=== PATIENT | male | born 1960 | race Caucasian/White ===

== ENCOUNTER → 2016-12-21 | Outpatient (CLI) | payer OTHER ==
[~2016-12-21] MED LIST: ASPIRIN LO-DOSE81 MG PO; LASIX40 MG PO; LEVOTHROID (S112 MCG PO; LIPITOR20 MG PO; LOPRESSOR50 MG PO; NITROSTAT0.4 MG SL; NORVASC5 MG PO; TOPROL XL25 MG PO; TRICOR145 MG PO
--- NOTE | ~2016-12-21 | ESTC ---
Cardiac Perfusion Imaging Demographics Patient Name DONNIE PORRAS I Gender Male Patient Number [id number] Race Visit Number [id number] Ethnicity Corporate ID Room Number 1 Accession Number [id number] Height 72 inches Date of 1960 Weight 206 pounds Interpreting Jay Herrmann Date of study 12/21/2016 Physician Supervising /LINH Herrmann NM Technologist Luis Evans MD Ordering Physician Jay Herrmann Stress Yg AQUINO overhead door technician Chaz Stress ECG Reading Jay Herrmann Nurse Rocco Lima Physician The procedure was explained in detail to the patient. Risks, complications and alternative treatments were reviewed. Written consent was obtained. Medications Reviewed with Patient prior to Procedure. Procedure Procedure Type: Nuclear Stress Test:Exercise, Cardiolite Stress Test Procedure Start time: 12/21/2016 00:00 Indications: Aortic Insufficiency. Risk Factors The patient risk factors include:Current/Recent(w/in 1 year) tobacco use and prior valve surgery/procedure . Conclusions Summary Perfusion Images: The overall quality of the study is good. Left ventricular cavity is noted to be enlarged on the stress and on the rest images. There is no evidence of abnormal lung activity. The right ventricle is not visualized an cannot be assessed. Impression ECG portion of the exercise stress test is clinically positive for ischemia by diagnostic criteria. Myocardial perfusion imaging is severely abnormal. The images reveal a partially reversible defect in the basal to mid inferior wall consistent with ischemia in the territory of the right coronary artery . Overall left ventricular systolic function was abnormal. Calculated LVEF is 37%. LV cavity is dilated. TID ratio is 1.22. This is a high risk stress test. Stress Protocols Resting ECG NSR, ST depressions in 2,3, avF, V4-6. Resting HR:63 bpm Resting BP:118/67 mmHg Pre-stress physical exam: reg rhythm, clear lungs Stress Protocol:Exercise Predicted HR: 164 bpm ECG Findings [address] depression in leads 2,3,aVF, V3-6 with peak exercise. Arrhythmias No rhythm abnormality. Symptoms Shortness of breath. Complications Procedure complication: None. Stress Interpretation The electrocardiographic portion of the exercise stress test was positive for ischemia. Blood pressure response was normal, heart rate response was normal for exertion. The Esquivel Treadmill Score was -8. Given early ST depressions and marked ST depressions in multiple leads this is high risk stress test. Imaging Results Summed scores - Summed stress score: 5 - Summed rest score: 5 - Summed difference score: 0 Stress ejection Ejection fraction:37 % EDV :203 ml ESV :128 ml Stroke volume :75 ml LV mass :193 gr Imaging Protocols Rest Stress Isotope:Tc99m Sestamibi IV Isotope: Tc99m Sestamibi IV Isotope dose:14.4 mCi Isotope dose:42.8 mCi Date:12/21/2016 07:53 Date:12/21/2016 09:51 Technique: SPECT Technique: Gated Supine SPECT Supine Scan Time:45-60 minutes post Scan Time:15-30 minutes post injection injection Medical History Admission Data Admission date: 12/21/2016 Admission Time: 06:58 Hospital Status: Outpatient. Signatures dtt: LEONIDES LUO dtd: 12/21/16 0000 Physician Self Edit
== END | disposition disaster alternative care site (69) ==
LOC: GRAD 06:58
DX: I35.1 Nonrheumatic aortic (valve) insufficiency (principal); I99.8 Other disorder of circulatory system; I51.89 Other ill-defined heart diseases; R06.09 Other forms of dyspnea; Z72.0 Tobacco use; Z98.890 Other specified postprocedural states
CPT/HCPCS: A9500

== ENCOUNTER 2017-04-21 15:15 | Inpatient (IN) | payer OTHER ==
[~2017-04-21] VITALS: Ht 182.9 cm; Wt 94.8 kg
--- NOTE | ~2017-04-21 | CATH ---
Cardiac Diagnostic + PCI Report Demographics Patient Name DONNIE PORRAS I Gender Male Date of 1960 Age 57 year(s) Patient Number [id number] Date of Study 04/23/2017 Visit Number [id number] Room Number G6[address] [place] [id number] Ht 182.88 cm Wt 94.8 kg Referring Yobani Whitman Primary Physician Physician Per[facility] Secondary Physician Physician Alize AQUINO Diagnostic [facility] Assisting Physician Physician Alize AQUINO Interventional [facility] Physician Tower Erector Physician Alize AQUINO Findings and Conclusions Diagnostic Findings and Conclusion 1) One vessel obstructive CAD, mid LAD 60-70%, Diag prox 80% tubular lesion 2) Moderate lesions in distal RCA and mid Cx Diagnostic Recommendations iFR of LAD, Cx and RCA (prior to SAVR for severe sx with NYHA 4, CHF exacerbation with volume overload) to determine need for revascularization. Interventional Findings and Conclusion iFR of mid LAD was 0.81, this lesion is physiologically significant and will benefit from revascularization The iFR of Cx and RCA lesions are not physiologically significant. iFR Cx was 1 iFR RCA was 1 Interventional Recommendations -SAVR and BYNUM to LAD/Diag -D/W [facility] CT surgery team, who will call patient to schedule. Patient will be discharged later today. Hydration and followup creatinine. Patient has been instructed to not lift anything more than 5 pounds for 1 week. Aggressive risk factor management. Aggressive medical therapy for coronary artery disease. Procedure Description The patient was brought to the diagnostic cardiac catheterization-EP laboratory in the fasting, non-sedated state. Informed consent was obtained in the written and verbal form after the risks and benefits were explained. The patient had no further questions and agreed to proceed. The planned puncture-incision site(s) were shaved and prepped with ChloraPrep and draped in the usual sterile manner. Conscious sedation, supplemental oxygen, and pain control medications were delivered by a registered nurse under physician guidance. Surface ECG rhythm, blood pressure measurement, and pulse oximetry were monitored throughout the procedure. Arterial access. The access site was infiltrated with lidocaine. The vessel was entered with the Seldinger technique. A sheath was advanced into the vessel and used for catheter placement. Selective left coronary angiography. A catheter was advanced into the left coronary vessel ostium under Fluoroscopic guidance. Contrast was injected by hand. Images were obtained in multiple projections. Selective right coronary angiography. A catheter was advanced into the right coronary vessel ostium under fluoroscopic guidance. Contrast was injected by hand. Images were obtained in multiple projections. iFR measurement was performed. The vessels was entered with a guiding catheter. The iFR wire was normalized and then advanced across the lesiona. Measurements were taken. Arterial artery hemostasis was achieved. The patient was transferred to a regular nursing floor via cart accompanied by a nurse. The patient left the laboratory in stable condition. Diagnostic Cath Status: Urgent Interventional Cath Status: Urgent Procedure Procedure Type Diagnostic procedure:Angiography:, Coronary Angios PCI procedure:Additional Imaging:, FFR/iFR:, Initial Vessel, Add'l Vessel Indications: CHF, Angina and CAD. The procedure was explained in detail to the patient. Risks, complications and alternative treatments were reviewed. Written consent was obtained. Medications Reviewed with Patient prior to Procedure. Angiographic Findings Dominance: Right Cardiac Arteries and Lesion Findings LMCA: Abnormal. Lesion on LMCA: Distal subsection.20% stenosis . LAD: Abnormal.The 1st Diag appears abnormal. Lesion on Mid LAD: 60% stenosis . Devices used - Verrata Pressure Wire. Number of passes: 1. Lesion on 1st Diag: Proximal subsection.80% stenosis . LCx: Abnormal.The 1st ob Kavitha appears normal. Lesion on Mid CX: 40% stenosis . Devices used - Verrata Pressure Wire. Number of passes: 1. RCA: Abnormal.The R PDA appears abnormal. The R PL appears normal. Lesion on Dist RCA: 50% stenosis . Devices used - Verrata Pressure Wire. Number of passes: 1. Lesion on Prox RCA: 20% stenosis . Lesion on R PDA: Ostial.80% stenosis . Comments:focal Coronary Tree Procedure Data Procedure Date Date: 04/23/2017Start: 08:10 AMEnd: 08:46 AM Entry Locations - Retrograde Percutaneous access was performed through the Right Radial artery (Primary location). A 6 Fr sheath was inserted. Hemostasis was successfully obtained using an R band. Closure Comments: que placement. 15 ml air in band. Procedure Medications Order and Administration + + + + + !Time !Medication !Dosage !Route ! + + + + + !04/23/2017 08:06 AM !Versed !2 mg !I.V. ! + + + + + !04/23/2017 08:06 AM !Fentanyl !50 mcg !I.V. ! + + + + + !04/23/2017 08:12 AM !Radial Verapamil !2.5 mg !I.A. ! + + + + + !04/23/2017 08:14 AM !Oxygen !2 l/min !NC ! + + + + + !04/23/2017 08:17 AM !Heparin (ACC_3) !5000 units !I.V. bolus ! + + + + + !04/23/2017 08:18 AM !Heparin (ACC_3) !2000 units !I.V. bolus ! + + + + + !04/23/2017 08:23 AM !Oxygen !4 l/min !NC ! + + + + + !04/23/2017 08:40 AM !Oxygen ! !NC ! + + + + + Devices Used - A5 Fr. BS JR 4 Diag. Catheterwas used for:Right coronary angiography. - A6 Fr. EBU 3.5 Guide Catheterwas used for:Left coronary angiography. - A6 Fr. JR4 Guide Catheterwas used for:Fractional Flow [place] measurments. - A5 Fr. BS JL 3.5 Diag. Catheterwas used for:Was not used. Contrast Material - Isovue 62954 ml Fluoroscopy Time: Diagnostic: 7:06 minutes. Total: 7:06 minutes. Fluoroscopy Dose: Diagnostic: 813 mGy. Total: 813 mGy. Estimated Blood Loss: 10 ml. Medical History Performed Procedures and Imaging Results - No ACC stress or imaging studies were performed. Allergies - No known allergies. Risk Factors The patient risk factors include:hypertension, family history of premature CAD, last creatinine: 1.2 mg/dl, creatinine clearance: 91.07 ml/min, prior valve surgery/procedure, dyslipidemia, former tobacco use and prior heart failure . Admission Data Admission Date: 04/21/2017 Admission Time: 04:19 PM Admit Source: Other Insurance Payors: [employer] health insurance. Admission Medications + +------+------+---------+---------+ + + !Medication !Dosage!Times !Last !Last !Administered !Comments ! ! ! !Per !Delivery !Delivery ! ! ! ! ! !Day !Date !Time ! ! ! + +------+------+---------+---------+ + + !Aspirin (any) ! ! ! ! !Yes ! ! + +------+------+---------+---------+ + + !Statin (any) ! ! ! ! !Yes ! ! + +------+------+---------+---------+ + + !Beta Reanna ! ! ! ! !Yes ! ! !(any) ! ! ! ! ! ! ! + +------+------+---------+---------+ + + !Low Molecular ! ! ! ! !Yes ! ! !Weight Heparin! ! ! ! ! ! ! !(any) ! ! ! ! ! ! ! + +------+------+---------+---------+ + + Clinical Evaluation Leading to Procedure - The patient's CAD presentation was assessed as: Unstable angina. - The patient's anginal syndrome during the past two weeks was assessed as: Class III according to the [place] Cardiovascular Society Classification System (CCS). Anti-anginal medications were prescribed during the past two weeks. The medication is: Beta Blockers. - The patient has been in a state of heart failure within the past two weeks. - The patient's heart failure status was assessed as NYHA Class IV, with CHF symptoms of KIM. Hemodynamics Condition: Rest O2 Consumption: Estimated: 262.50Heart Rate: 78 bpm Pressures (mmHg) +-----+ + !Site !Pressure ! +-----+ + !AO !93/56 (74) ! +-----+ + !AO !100/56 (77) ! +-----+ + Shunts Oxygen Values O2 Capacity 220.32 O2 Consumption 262.5 Discharge Data Discharge Date: 04/23/2017 Hospital Status: Inpatient Signatures dtt: ALIZE LUO dtd: 04/23/17 0810 Physician Self Edit
--- NOTE | ~2017-04-21 | DS ---
PATIENT'S NAME: CHIQUITA FIELDS I [facility] AGE: 57 Y [address] ROOM: G6321 [place], [place] [address] LOCATION: GPCU ADMIT DATE: 04/21/2017 Discharge Summary DISCHARGE DATE: 04/23/2017 FAMILY PHYSICIAN: Felix Hilton DO ATTENDING PHYSICIAN: Dom Solis FINAL DIAGNOSES: 1. Severe asymptomatic bioprosthetic aortic stenosis with decompensated congestive heart failure, [place] Heart Association class IV. 2. Unstable angina with significant left anterior descending lesion. PROCEDURES: He had a left heart cath by Dr. Grossman on April 23. REASON FOR CONSULTATION: Please see the history and physical dictated by Dr. Solis. In short, the patient had been having increasing symptoms of shortness of breath consistent with congestive heart failure and angina. The patient was admitted for heart catheterization and treatment of CHF prior to possible surgical intervention. LABORATORY DATA: At discharge, sodium 138, potassium 3.9, chloride 104, CO2 26, BUN 23, and creatinine 1.2. White blood cell count at discharge 8.3, hemoglobin 16.2, hematocrit 46.9, and platelet count 145. Pro-BNP on admission was 6678. Cholesterol 107, triglycerides 171, HDL 32, and LDL 41. HOSPITAL COURSE: The patient was admitted with a diagnosis of decompensated congestive heart failure. He was placed on telemetry. He was given IV Lasix and Dr. Grossman did help coordinate care. The plan was for the patient to undergo a cardiac catheterization on the . It was felt that he did have significant congestive heart failure. It was known from studies in the clinic that he was having leakage from his bioprosthetic aortic valve. He did respond very nicely to the Lasix with significant diuresis. It was felt that he was stable to proceed with a heart catheterization on the . Please see Dr. Grossman's full dictation for details of the heart catheterization. The patient was found to have a significant LAD lesion. Dr. Grossman did contact the [facility]. The patient will require redo aortic valve replacement and will have to have a bypass of the LAD and diagonal. The patient was made aware of this, he was monitored appropriately after the procedure, and felt to be stable for discharge. DISCHARGE INSTRUCTIONS: His discharge instructions are postroutine heart catheterization going through the wrist. Followup in [facility] in [place] with Dr. Grossman in 1 month. He will be contacted by the [facility] regarding surgery timing. DISCHARGE MEDICATIONS: PATIENT'S NAME: CHIQUITA FIELDS I [facility] AGE: 57 Y [address] ROOM: G6321 [place], [place] [address] [facility] ADMIT DATE: 04/21/2017 Discharge Summary DISCHARGE DATE: 04/23/2017 FAMILY PHYSICIAN: Felix Hilton DO ATTENDING PHYSICIAN: Dom Solis 1. Aspirin 81 mg daily. 2. Lipitor 20 mg daily. 3. Lasix 40 mg daily. 4. Synthroid 112 mcg daily. 5. Toprol-XL 25 mg daily. 6. Nitroglycerin 0.4 mg sublingual p.r.n. chest pain. The patient did voice understanding of the instructions. JOEL MEJIA MD LAW/modl /[id number] CC: MD Felix Begum DO d: t: 04/26/17 1446, DISCHARGE SUMMARY
--- NOTE | ~2017-04-21 | CON ---
PATIENT'S NAME: REN FIELDS I [facility] AGE: 57 Y [address] ROOM: G6321 [place], [place] [address] LOCATION: GPCU ADMIT DATE: 04/21/2017 Consultation DISCHARGE DATE: FAMILY PHYSICIAN: PHYSICIAN, NO ATTENDING PHYSICIAN: ISIAH SUMMERS DATE OF CONSULTATION: 04/21/2017 REFERRING PHYSICIAN: LEONIDES LUO MD PRIMARY CARE DOCTOR: Felix Hilton D.O. REASON FOR CONSULTATION: CHF. CHIEF COMPLAINT: Shortness of breath and chest heaviness. HISTORY OF PRESENT ILLNESS: Ren is a very pleasant 57-year-old male who has history of bioprosthetic Medtronic aortic valve replacement that was done in 2006, it is a #29. He also had ascending aortic root replacement with #32 Vascutek Dacron graft and reimplantation of his coronary arteries at the same time. Over the years, his bioprosthetic aortic valve gradients have been increasing and his last echocardiogram showed a gradient of 40.3 mmHg, mean gradient across the bioprosthetic aortic valve also with 2 jets of paravalvular leak. The leaflets were severely calcific with restricted mobility. He did have a stress test with reversible defect in the mid anterior wall. He underwent heart cath and he had about 40% to 50% lesion in the mid LAD as well as the diagonal side branch had about 50% to 60% stenosis as well, mild nonobstructive disease in the circumflex and the RCA. At that time, we did consult CT Surgery. He saw Dr. Ledesma at [facility] and basically he reviewed the CARLOS as well as the cardiac cath angiograms and the decision was to proceed with redo surgical AVR. Given his young age as well as low STS risk, he was deemed not an ideal candidate for TAVR. The patient wanted to postpone the surgery because he was doing quite well and did not have significant symptoms except for dyspnea on exertion that has been chronic, so he did try to postpone the surgery to early next year since he did have some activities and weddings in the family to attend prior to that. The patient did see his primary care physician in [place] for complains of shortness of breath, dyspnea on exertion, as well as chest heaviness with exertion for the past 3 days. He was not able to lay down and sleep and had a gargling sensation in his throat and difficulty breathing as well as wheezing PATIENT'S NAME: REN FIELDS I [facility] AGE: 57 Y [address] ROOM: G6[address] [place], [place] [address] LOCATION: GPCU ADMIT DATE: 04/21/2017 Consultation DISCHARGE DATE: FAMILY PHYSICIAN: PHYSICIAN, NO ATTENDING PHYSICIAN: ISIAH SUMMERS when he was laying down. He also reports worsening dyspnea on exertion for the past 3 days. He does not have any symptoms at rest and when he sits up on his recliner, he does not have any shortness of breath. During interview, the patient does not have any chest pain. He is doing very well. He is not on oxygen and his saturations are greater than 90%. In the local hospital in [place], he did get blood work where his D-dimer was elevated and he underwent a CT scan of his chest that showed bilateral pleural effusions with cardiac enlargement and diffuse interstitial prominence suspicious for interstitial edema suggestive of congestive heart failure. There was no evidence of PE. His labs were obtained and his renal function is stable and his GFR is greater than 60. His D-dimer was elevated at 1161, for which he underwent a CT scan. His proBNP was also elevated at 4952. On EKG, he did have some new ST depressions in leads V5 and V6 compared to his prior EKG. HOME MEDICATIONS: 1. Lipitor 20. 2. Toprol-XL 25 daily. 3. Aspirin 81 daily. ALLERGIES: NO KNOWN DRUG ALLERGIES. PHYSICAL EXAMINATION: VITAL SIGNS: Height is 6 feet, blood pressure 140/70, pulse is 70, and O2 saturations 96% on room air. SKIN: Warm and dry. EYES: Sclerae white. No xanthelasmas. ENT: Mucous membranes are moist. No JVD or carotid bruits. HEAD: Atraumatic and normocephalic. CHEST: Decreased breath sounds in both lung bases. Lungs are otherwise clear anteriorly. ABDOMEN: Soft. Bowel sounds positive. EXTREMITIES: No significant lower extremity edema. PSYCH: Alert and oriented. Mood normal. NEURO: Grossly intact. MUSCULOSKELETAL: Good range of motion. Gait normal. HEART: S1 and S2. Regular rate and rhythm. 3/6 systolic murmur best heard in the right second intercostal space. LABORATORY DATA: CBC: WBC 8.9, H and H 15.9 and 45.9, and platelets are 145. D-dimer is 1161. ProBNP is 4952. His GFR is greater than 60. His electrolytes are normal. DIAGNOSTIC STUDIES: PATIENT'S NAME: REN FIELDS I [facility] AGE: 57 Y [address] ROOM: [place] [address] LOCATION: GPCU ADMIT DATE: 04/21/2017 Consultation DISCHARGE DATE: FAMILY PHYSICIAN: PHYSICIAN, NO ATTENDING PHYSICIAN: ISIAH SUMMERS CT negative for PE, cardiac enlargement with moderately large bilateral pleural effusions, interstitial thickening is present likely secondary to interstitial edema. Echocardiogram done on 08/20/2016 showed LVEF of 55%, moderate biatrial enlargement, #29 Medtronic Mosaic bioprosthetic aortic valve with a mean gradient of 40.3 mmHg at least moderate AI with 2 separate jets of paravalvular AI as well as trace central jet of AI also noted. EKG showed normal sinus rhythm, ST depressions in leads V5 and V6. IMPRESSION: 1. Bioprosthetic aortic valve replacement with #29 Medtronic valve as well as aortic root replacement with #32 Vascutek Dacron graft with reimplantation of his coronaries in 2006. Mean gradient across the valve is 40.3. There is moderate aortic insufficiency secondary to 2 jets of paravalvular leak. 2. Valvular heart disease, congestive heart failure with NYHA Class III symptoms. There is evidence of volume overload and he has dyspnea on exertion, shortness of breath, and orthopnea. 3. Coronary artery disease with anginal symptoms, CCS class III. This could be secondary to the aortic valve stenosis versus disease in his left anterior descending/diagonal. 4. Hypertension, essential, well controlled. 5. Hyperlipidemia. We will get LDL. PLAN: At this time, we will first attempt IV diuretics, closely monitor his renal function. We will start IV Lasix 40 mg now and repeat again in the morning. Attempt to keep him euvolemic and plan for cardiac cath on Wednesday. He did receive contrast load today and I want to try to postpone that a little bit because repeated episodes of contrast exposure especially in the setting of acute decompensated CHF can increase the risk of NAGI. At this time, I think given the EKG changes as well as chest heaviness and [id number] lesions in the LAD and diagonal, iFR or some sort of physiological testing is warranted for the LAD and diagonal to determine need for revascularization during the time of AVR. He did have a stress test that did show some ischemia in the LAD territory already, so I think an iFR will give us more meaningful information and assessment for evidence of ischemia. Team already discussed at [facility], the structural team regarding TAVR versus SAVR. Given his low age as well as paravalvular leak and slightly undersized aortic valve with #29, it might be best to proceed with surgical AVR to get a good result and that will leave him with an option for TAVR in the future if he should have restenoses of the surgical AVR. PATIENT'S NAME: REN FIELDS I [facility] AGE: 57 Y [address] ROOM: [place] [address] [facility] ADMIT DATE: 04/21/2017 Consultation DISCHARGE DATE: FAMILY PHYSICIAN: ABDIFATAH GONZALES ATTENDING PHYSICIAN: ISIAH SUMMERS The patient is agreeable with plan. Thank you very much for allowing us to participate in the care of Mr. Fields. Risks and benefits of cardiac cath discussed in detail with the patient and he understands and agreeable to proceed with plan. Risk of , VT, stroke, bleeding, and NAGI discussed with the patient and he understands. LEONIDES LUO MD AT/modl /[id number] CC: Felix Hilton DO d: 04/21/17 2329 t: 04/26/17917, CONSULTATION REPORT
--- NOTE | ~2017-04-21 | HP ---
PATIENT'S NAME: CHIQUITA FIELDS I [facility] AGE: 57 Y [address] ROOM: [address] [address] [facility] ADMIT DATE: 04/21/2017 History & Physical DISCHARGE DATE: FAMILY PHYSICIAN: PHYSICIAN, NO ATTENDING PHYSICIAN: ISIAH SUMMERS DATE OF SERVICE: 04/21/2017 CHIEF COMPLAINT: Progressive shortness of breath and dyspnea on exertion. HISTORY OF PRESENT ILLNESS: This is a very pleasant 57-year-old male, well known to the Cardiology Service, who has a congenital bicuspid aortic valve which was replaced with a Medtronic #29 valve in 2006 as he had noted progressive symptoms at that time and found to have an ascending aortic aneurysm. Past medical history is, otherwise, notable for hypertension and hyperlipidemia, but largely benign. He presented recently for these symptoms which have been progressive over the last several months to years. He was being followed closely and had noted that gradient across his prosthetic valve has slowly increased. He was planning for an aortic valve repeat replacement in the near future; however, he has postponed this on his own volition due to absence initially of significant symptoms. However, now symptoms have progressed to the point where he has had worsening dyspnea on exertion and feels that he has some chest tightness and unable to catch his breath over the last several days to a couple weeks. He lives in [place] and today his symptoms prompted a call to Dr. Alize Thompson with Cardiology, and Hospitalist Service has been requested to admit the patient for diuresis and likely repeat heart catheterization in advance of probable aortic valve replacement soon. The patient currently denies any other significant symptoms including no fevers or chills; no nausea or vomiting; no lightheadedness or dizziness; no abdominal pain, bowel or bladder concerns, or leg swelling. PAST MEDICAL HISTORY: 1. Congenital bicuspid aortic valve, status post replacement with ongoing progressive aortic stenosis of prosthetic valve. 2. Essential hypertension. 3. Recent left heart catheterization with nonobstructive coronary disease. 4. Hyperlipidemia. 5. Hypothyroidism. SURGICAL HISTORY: Bioprosthetic AVR in 2006 with Medtronic #29, ascending aortic aneurysm repair also at that time. PATIENT'S NAME: CHIQUITA FIELDS I [facility] AGE: 57 Y [address] ROOM: [id number] [place], [place] [id number] LOCATION: [facility] ADMIT DATE: 04/21/2017 History & Physical DISCHARGE DATE: FAMILY PHYSICIAN: PHYSICIAN, NO ATTENDING PHYSICIAN: ISIAH SUMMERS FAMILY HISTORY: Completely reviewed and noncontributory to current presentation. SOCIAL HISTORY: Does chew tobacco. Previously endorses extensive alcohol use, though quit in August. Smokes an occasional cigar. ALLERGIES: NO KNOWN DRUG ALLERGIES. MEDICATIONS: Currently being reconciled, but notable for 1. Lipitor. 2. Toprol. 3. Aspirin. 4. Synthroid. REVIEW OF SYSTEMS: Complete review of systems was performed and negative except as noted above in HPI. PHYSICAL EXAMINATION: VITAL SIGNS: The patient is afebrile. Blood pressure 126/70s, pulse rate 70s by auscultation, respirations 16, saturating well on room air. GENERAL: The patient is in no acute distress, sitting up comfortably at edge of bed. HEENT: Head; normocephalic, atraumatic. Eyes; pupils equal, round, and reactive to light. Extraocular muscles intact. No conjunctival injection or erythema. No scleral icterus. ENT; mucous membranes are moist. No nasal discharge. NECK: Supple. No lymphadenopathy. No thyromegaly. No JVD appreciated. CARDIOVASCULAR: Combined systolic and diastolic murmur present throughout the precordium, likely consistent with aortic stenosis and probable aortic regurgitation. Heart is regular in rhythm. LUNGS: Significant crackles at bilateral bases, diminishing superiorly. Otherwise, no wheezes appreciated. Normal effort and breathing and saturating well on room air. ABDOMEN: Soft, nontender, nondistended. Normoactive bowel sounds. EXTREMITIES: Without appreciable edema with no skin lesions noted on exposed trunk or extremities. NEUROLOGIC: The patient is alert and oriented x3 with no focal deficits appreciated. LABS AND IMAGING: White count 8.9, hemoglobin 15.9, platelets 145. Sodium 140, potassium 4.3, PATIENT'S NAME: CHIQUITA FIELDS I [facility] AGE: 57 Y [address] ROOM: [id number] [place], [place] [address] LOCATION: [facility] ADMIT DATE: 04/21/2017 History & Physical DISCHARGE DATE: FAMILY PHYSICIAN: PHYSICIAN, NO ATTENDING PHYSICIAN: ISIAH SUMMERS chloride 105, bicarb 25, BUN 13, creatinine 1.1, glucose 118, calcium 9.1. Total protein 7.6, albumin 3.8, AST 45, ALT 20, alkaline phosphatase 92, total bilirubin 1.2. TSH was recently 6.126 with a free T4 of 1.21. EKG shows minor anterolateral ST changes per report from Dr. Alize Thompson. Chest x-ray does show pleural effusion bilaterally, also per report, not visualized personally. The patient did have a D-dimer of [address] outside facility prompting CT angiogram which was negative for pulmonary embolism. ASSESSMENT: 1. Severe aortic stenosis secondary to bicuspid aortic valve, status post valve replacement, now with progressive valvular gradient and symptoms of heart failure, NYHA class 3. 2. Essential hypertension. 3. Hyperlipidemia. 4. Hypothyroidism. PLAN: The patient was discussed [id number] with Dr. Alize Thompson. We will plan for a single dose of IV Lasix 40 mg currently, though will be cautious with further diuresis in the setting of severe aortic stenosis. We will plan to pursue a left heart catheterization, not until Wednesday, delayed due to IV contrast load received today for CTA to follow up elevated D-dimer, and we will monitor renal function closely in interim. We will continue home levothyroxine for hypothyroidism as well as home Lipitor, Toprol, and aspirin. Appreciate Cardiology's recommendations on this nice man. The patient is a full code. I spent 25 minutes on date of admission in review of outside records as well as in [id number] evaluation of the patient and discussion with Dr. Alize Thompson. MD PAKO DAILY/johnie /[id number] D: [id number] T: [id number] HISTORY & PHYSICAL
[~2017-04-21 15:15] MED LIST changes: -LASIX40 MG PO; -LIPITOR20 MG PO; -NITROSTAT0.4 MG SL; -TOPROL XL25 MG PO
[2017-04-21] MEDS ORDERED: LIPITOR20 MG PO (17:43)
[2017-04-21] MEDS ORDERED: TOPROL XL25 MG PO (17:43)
[2017-04-21 19:27] LABS: BASOPHIL % 0.5 %; EOSINOPHIL # 0.1 K/uL (0.0-0.5); EOSINOPHIL % 1.6 %; HEMATOCRIT 45.7 % (37.0-53.0); HEMOGLOBIN 16.3 g/dL (12.0-17.0); IMMATURE GRANULOCYTE # 0.1 K/uL (0.0-0.3); IMMATURE GRANULOCYTE % 0.6 %; LYMPHOCYTE # 2.6 K/uL (0.8-4.0); LYMPHOCYTE % 29.5 %; MCHC 35.7 gm/dL (32.0-36.5); MCV 98.1 fl (83.0-98.0); MONOCYTE # 0.7 K/uL (0.0-1.0); MONOCYTE % 7.7 %; MPV 12.1 fl (9.4-12.4); NEUTROPHIL # (ANC) 5.2 K/uL (1.4-9.0); NEUTROPHIL % 60.1 %; NRBC % 0 /100WBC (0-0.00); PLATELET COUNT 156 K/uL (150-450); RBC 4.66 M/uL (4.00-6.00); RDW-CV 13.2 % (11.9-14.6); WBC 8.7 K/uL (4.0-11.0)
[2017-04-21 19:41] LABS: INR - (THERAPEUTIC) 1.15 (0.92-1.07); PROTIME 12.1 SECONDS (9.8-11.4); PTT 28 SECONDS (25-32)
[2017-04-21 19:48] LABS: ALBUMIN 4.1 gm/dL (3.5-5.0); CREATININE 1.2 mg/dL (0.6-1.3); TOTAL PROTEIN 7.8 g/dL (6.0-8.4)
[2017-04-22 04:33] LABS: BASOPHIL # 0.1 K/uL (0.0-0.2); BASOPHIL % 0.6 %; EOSINOPHIL # 0.2 K/uL (0.0-0.5); EOSINOPHIL % 1.8 %; HEMATOCRIT 43.6 % (37.0-53.0); HEMOGLOBIN 15.3 g/dL (12.0-17.0); IMMATURE GRANULOCYTE % 0.4 %; LYMPHOCYTE # 2.1 K/uL (0.8-4.0); LYMPHOCYTE % 23.3 %; MCH 34.7 pg (27.0-34.0); MCHC 35.1 gm/dL (32.0-36.5); MCV 98.9 fl (83.0-98.0); MONOCYTE # 0.7 K/uL (0.0-1.0); MONOCYTE % 7.3 %; MPV 12.4 fl (9.4-12.4); NEUTROPHIL % 66.6 %; NRBC % 0 /100WBC (0-0.00); PLATELET COUNT 139 K/uL (150-450); RBC 4.41 M/uL (4.00-6.00); RDW-CV 13.2 % (11.9-14.6); WBC 9.1 K/uL (4.0-11.0)
[2017-04-22 05:38] LABS: ANION GAP 12.9 (10.0-19.0); CREATININE 1.2 mg/dL (0.6-1.3); POTASSIUM 3.9 mMol/L (3.7-5.1)
[2017-04-23 05:30] LABS: BASOPHIL # 0.1 K/uL (0.0-0.2); BASOPHIL % 0.6 %; EOSINOPHIL # 0.2 K/uL (0.0-0.5); EOSINOPHIL % 1.9 %; HEMATOCRIT 46.9 % (37.0-53.0); HEMOGLOBIN 16.2 g/dL (12.0-17.0); IMMATURE GRANULOCYTE # 0.1 K/uL (0.0-0.3); IMMATURE GRANULOCYTE % 0.7 %; LYMPHOCYTE # 2.3 K/uL (0.8-4.0); LYMPHOCYTE % 28.1 %; MCH 33.9 pg (27.0-34.0); MCHC 34.5 gm/dL (32.0-36.5); MCV 98.1 fl (83.0-98.0); MONOCYTE # 0.7 K/uL (0.0-1.0); MONOCYTE % 8.1 %; MPV 12.3 fl (9.4-12.4); NEUTROPHIL % 60.6 %; NRBC % 0 /100WBC (0-0.00); PLATELET COUNT 145 K/uL (150-450); RBC 4.78 M/uL (4.00-6.00); RDW-CV 13.1 % (11.9-14.6); WBC 8.3 K/uL (4.0-11.0)
[2017-04-23 05:42] LABS: ANION GAP 11.9 (10.0-19.0); CALCIUM 9.1 mg/dL (8.5-10.5); CREATININE 1.2 mg/dL (0.6-1.3); POTASSIUM 3.9 mMol/L (3.7-5.1)
[2017-04-23] MEDS ORDERED: LASIX40 MG PO (13:42)
[2017-04-23] MEDS ORDERED: NITROSTAT0.4 MG SL (13:43)
== END 2017-04-23 14:00 | disposition disaster alternative care site (69) | DRG 287 ==
LOC: GPCU 16:19
PROVIDERS: Internal Medicine Interventional Cardiology; ADMIT Internal Medicine
PROC: B216YZZ Fluoroscopy of Right and Left Heart using Other Contrast (ICD-10-PCS; principal; 2017-04-23)
PROC: 4A023N8 Measurement of Cardiac Sampling and Pressure, Bilateral, Percutaneous Approach (ICD-10-PCS; principal; 2017-04-23)
DX: I25.110 Atherosclerotic heart disease of native coronary artery with unstable angina pectoris (principal); T82.857A Stenosis of other cardiac prosthetic devices, implants and grafts, initial encounter; I11.0 Hypertensive heart disease with heart failure; I50.40 Unspecified combined systolic (congestive) and diastolic (congestive) heart failure; I35.0 Nonrheumatic aortic (valve) stenosis; E78.5 Hyperlipidemia, unspecified; E03.9 Hypothyroidism, unspecified; F17.220 Nicotine dependence, chewing tobacco, uncomplicated
CPT/HCPCS: C1769; C1887; J1644; J1650; J1940; J2250; J3010; J7030